=== PATIENT | male | born 1980 | race Caucasian/White ===

== ENCOUNTER 2017-01-16 00:46 | Emergency (ER) | payer OTHER ==
[~2017-01-16] VITALS: Wt 81.8 kg
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
[2017-01-16] MEDS ORDERED: LIDOCAINE 1%/EPI (MDV) 20 ML INJ INJ STA (02:56)
[2017-01-16] MEDS ORDERED: DIPHTH/TET/ACEL PERTUSS (ADULT) 0.5 ML VIAL IM* ONE (03:00)
[2017-01-16] MEDS ORDERED: CEFAZOLIN 1 GM INJ IM ONE (03:00)
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
[2017-01-16] MEDS ORDERED: LIDOCAINE 1%/EPI 30 ML INJ INJ ONE (03:20)
[2017-01-16] MEDS ORDERED: CEFAZOLIN 1 GM/50 ML (PMX) 50 ML IVPB SCH (03:30)
[2017-01-16 05:47] VITALS: BP 132/78; PULSE 78; RESP 16
== END 2017-01-16 05:56 | disposition home or self-care (01) ==
LOC: E/R 00:46
DX: S21.232A Puncture wound without foreign body of left back wall of thorax without penetration into thoracic cavity, initial encounter (principal); S21.212A Laceration without foreign body of left back wall of thorax without penetration into thoracic cavity, initial encounter; X99.9XXA Assault by unspecified sharp object, initial encounter; Z23 Encounter for immunization
CPT/HCPCS: 12001; 71010; 90471; 90715; 96374; 99284; J0690